=== PATIENT | female | born 1990 | race Caucasian/White ===

== ENCOUNTER → 2022-11-19 09:19 | Outpatient (CLI) | payer OTHER, SELFPAY ==
[2022-11-19 09:50] LABS: Basophils % 0.2 % (0.1-2.0); Eosinophils # 0.1 K/mm3 (0.0-0.4); Eosinophils % 1.4 % (0.1-12.0); Hematocrit 41.1 % (37.0-47.0); Hemoglobin 13.3 g/dL (12.2-16.2); Lymphocytes # 1.4 K/mm3 (0.7-4.5); Lymphocytes % 17.9 % (10-50); Mean Corpuscular HGB Conc 32.3 g/dL (31.8-35.4); Mean Corpuscular Hemoglobin 27.4 pg (27.0-31.2); Mean Platelet Volume 8.1 fl (7.4-10.4); Monocytes # 0.3 K/mm3 (0.1-1.0); Monocytes % 3.4 % (1.7-9.3); Neutrophils # 6.2 K/mm3 (1.8-7.8); Neutrophils % 77.1 % (37.0-80.0); Platelet Count 270 K/mm3 (142-424); Red Blood Count 4.84 M/mm3 (4.20-5.40); Red Cell Distribution Width 14.4 % (11.5-17.5); White Blood Count 8.1 K/mm3 (4.8-10.8)
[2022-11-20 15:33] LABS: HIV Screen 4th Generation wRfx Non Reactive (Non Reactive); Rapid Plasma Reagin Ab Titer Non Reactive (NonRea<1:1); Rubella Antibodies, IgG 1.98 index (Immune >0.99)
[2022-11-20 16:32] LABS: Barbiturates Screen,Urine Negative ng/ml (<200); Benzodiazepines Screen,Urine Negative ng/ml (<200); Cocaine Screen,Urine Negative ng/ml (<300)
[2022-11-20 16:41] LABS: Amphetamine/Metha Screen,Urine Negative ng/ml (<1000); Phencyclidine Screen,Urine Negative ng/ml (<25)
[2022-11-20 17:02] LABS: Cannabinoid Screen,Urine Positive ng/ml (<50)
[2022-11-20 17:03] LABS: Methadone Screen,Urine Negative ng/ml (<300)
[2022-11-20 17:04] LABS: Opiate Screen,Urine Negative ng/ml (<300)
[2022-12-06 08:30] LABS: Hepatitis B Surface Antigen Negative; Hepatitis C Antibody Non Reactive
== END ==
PROVIDERS: PCP Nurse Practitioner Family; Visit Provider Nurse Practitioner Obstetrics & Gynecology
DX: Z34.91 Encounter for supervision of normal pregnancy, unspecified, first trimester (principal); Z3A.09 9 weeks gestation of pregnancy
CPT/HCPCS: 36415; 80305; 85025; 86593; 86703; 86762; 86850; 87086; 87340; 87380; G0432

== ENCOUNTER → 2022-11-28 13:53 | Outpatient (CLI) | payer OTHER, SELFPAY ==
--- NOTE | 2022-11-28 13:54 | US_ITS ---
PROCEDURE: US OB <= 14 WEEKS FETUS CLINICAL INDICATION: for dates COMPARISON: No exams were available for comparison FINDINGS: Transvaginal sonographic images of the pelvis were obtained. From her last menstrual period she is 10weeks 5days. An intrauterine gestational sac is present with a pole with a crown-rump length of 3.48cm correlating to gestational age of 10weeks 3days. heart tones are present with an FHR of 160bpm. Yolk sac is noted. The yolk sac measures 5.8mm. The right ovary is seen and appears normal. It measures 6.7 cm x 4.9 cm x 4.8 cm. Within the right ovary there is a follicle measuring 4.3 cm x 4.8 cm x 4.8 cm. The left ovary is seen and appears normal. It measures 2.7 cm x 1.9 cm x 1.6 cm. There is no fluid in the cul-de-sac. IMPRESSION: 1. Viable fetus within the uterine cavity. 2. The size is concurrent with her last menstrual period. Due date will remain at June 21, 2023 3. There is a 4.8 cm follicle on the right ovary. Dictated by: Johan Holm MD 11/28/2022 15:29 Johan Holm MD in [facility] 11/28/2022 15:29
== END ==
PROVIDERS: PCP Nurse Practitioner Family; Visit Provider Nurse Practitioner Obstetrics & Gynecology
DX: Z34.91 Encounter for supervision of normal pregnancy, unspecified, first trimester (principal); Z3A.09 9 weeks gestation of pregnancy
CPT/HCPCS: 76801

== ENCOUNTER 2022-12-29 13:14 | Observation (INO) | payer OTHER, SELFPAY ==
[2022-12-29] VITALS (8 sets, daily range): BP systolic 104–127; BP diastolic 62–78; PULSE 73–112; RESP 16–20; TEMP 36.6–36.7; O2SAT 94–98; BMI 28.3; BMI 28.6
--- NOTE | 2022-12-29 13:27 | PC.NURSE ---
Pt ambulatory to bathroom and able to obtain urine sample
--- NOTE | 2022-12-29 13:31 | PC.NURSE ---
Dr. Waters at BS for pt eval
--- NOTE | 2022-12-29 13:43 | PC.NURSE ---
accompanied dr. izquierdo in room during u/s exam
--- NOTE | 2022-12-29 13:48 | HMH.EDGENADL ---
Discharge Plan Disposition Patient Disposition: Admitted Clinical Impressions Clinical Impression: Abdominal pain, RUQ, Asymptomatic bacteriuria Discharge ED Provider: Iván Waters General Adult HPI General Chief complaint: Abdominal Pain Stated complaint: V/D, abd pain Time Seen by Provider: 12/29/22 13:20 Mode of Arrival: Ambulatory Source of Information: Patient Limitations: No Limitations Description of Symptoms (Recalled from ER Triage Doc. by RN): pt cc is generalized abd pain, n/v/d since 0500 this morning. pt is 14-15 weeks and sees . pt denies any fever and is worried she ate something bad. pt states she also still has her gallbladder History of Present Illness HPI narrative: Patient is a 32-year-old female currently 14 to 15 weeks , patient of Dr. Drake who presents emergency department for evaluation of vomiting. Onset was acute, occurring earlier this morning, nonbloody, associated nonbloody diarrhea. She has vague periumbilical abdominal pain that intermittently radiates to the right upper quadrant, but is largely epigastric in nature. No sick contacts. No other acute complaints at this time. Denies vaginal bleeding. Related Data Previous Rx's Medication Instructions Recorded prenat.vits,nicole,rqs-[id number] 1 tab PO DAILY #30 tabs 05/04/21 promethazine 12.5 mg tablet 12.5 mg PO Q6H PRN nausea and 11/19/22 vomiting #30 tabs Allergies Allergy/AdvReac Type Severity Reaction Status Date / Time No Known Allergies Allergy Verified 12/17/22 08:26 [facility] Disclaimer: The information contained in this section may have been updated after the patient was seen, as this information can be updated by other users. Medical History Syphilis Surgical History (Updated 11/19/22 @ 08:38 by Nichole Alaniz CMA) H/O dilation and curettage Family History Other Alcoholism Asthma Coronary artery disease Diabetes Heart attack Hypertension Social History Smoking Status: Never smoker alcohol intake: current substance use type: denies use current occupational status: employed Travel in the last 8 weeks: None ROS Obtained: Yes Systems reviewed as appropriate & no additional complaints except as documented Physical Exam General General appearance: alert and in no apparent distress Head Head exam: atraumatic and normocephalic Eye Eye exam: Present PERRL and EOMI ENT ENT exam: Present mucous membranes moist Neck Neck exam: Present normal inspection Chest Chest inspection: Present normal inspection and symmetric chest wall rise Respiratory Respiratory exam: Present normal lung sounds bilaterally; Absent respiratory distress Cardiovascular Cardiovascular exam: Present regular rate and normal rhythm Abdominal Exam Abdominal exam: Present soft and tenderness (Mild epigastric and right upper quadrant pain tenderness) Extremities Exam Extremities exam: Present normal inspection Neurological Exam Neurological exam: Present alert and oriented X3 Psychiatric Psychiatric exam: Present normal affect Skin Skin exam: Present warm and dry Medical Decision Making Ez Inquiry Pt receiving controlled substance: No Vital Signs: 12/29/22 13:15 12/29/22 13:30 12/29/22 14:00 Temperature 97.9 F Temperature Source Oral Pulse Rate 87 93 H Pulse Rate [Left Radial] 112 H Respiratory Rate 20 Blood Pressure 115/73 109/74 L Blood Pressure [Left Arm] 121/78 Blood Pressure Mean Blood Pressure Mean [Left Arm] 92 02 Sat by Pulse Oximetry 98 95 95 Oxygen Delivery Method Room Air Room Air Room Air 12/29/22 14:30 12/29/22 15:00 12/29/22 15:50 Temperature 98.1 F Temperature Source Pulse Rate 89 73 74 Pulse Rate [Left Radial] Respiratory Rate 16 18 Blood Pressure 107/63 L 104/66
[2022-12-29 14:00] LABS: Basophils % 0.1 % (0.1-2.0); Eosinophils # 0.2 K/mm3 (0.0-0.4); Eosinophils % 1.6 % (0.1-12.0); Hematocrit 44.5 % (37.0-47.0); Hemoglobin 14.5 g/dL (12.2-16.2); Lymphocytes # 1.2 K/mm3 (0.7-4.5); Lymphocytes % 8.7 % (10-50); Mean Corpuscular HGB Conc 32.6 g/dL (31.8-35.4); Mean Corpuscular Hemoglobin 28.5 pg (27.0-31.2); Mean Corpuscular Volume 87.4 fl (81-99); Mean Platelet Volume 8.2 fl (7.4-10.4); Monocytes # 0.3 K/mm3 (0.1-1.0); Monocytes % 2.3 % (1.7-9.3); Neutrophils # 11.7 K/mm3 (1.8-7.8); Neutrophils % 87.4 % (37.0-80.0); Platelet Count 245 K/mm3 (142-424); Red Blood Count 5.09 M/mm3 (4.20-5.40); Red Cell Distribution Width 14.4 % (11.5-17.5); White Blood Count 13.4 K/mm3 (4.8-10.8)
[2022-12-29 14:01] LABS: Chloride 107 mmol/L (98-107); MANUAL DIFFERENTIAL MANUAL DIFFERENTIAL (MANUAL DIFF); Potassium 3.7 mmoL/L (3.5-5.1); Sodium 137 mmol/L (136-145)
[2022-12-29 14:04] LABS: Alanine Aminotransferase 25 U/L (12-78); Alkaline Phosphatase 75 U/L (38-126); Anion Gap 10.7 mEq/L (5-15); Aspartate Amino Transferase 25 U/L (14-36); Bilirubin,Total 0.3 mg/dl (0.2-1.3); Blood Urea Nitrogen 7 mg/dl (7-17); Carbon Dioxide 23 mmol/L (22.0-30.0); Creatinine Clearance Estimated 182 mL/min (50-200); Estimated Glomerular Filt Rate 141 ml/min (>60); GFR (African American) 171 ML/MIN (>60); Glucose 98 mg/dl (74-100); Lipase 49 U/L (23-300)
[2022-12-29 14:05] LABS: Albumin Level 3.5 g/dl (3.5-5.0); Globulin 3.5 g/dL (1.3-3.2)
[2022-12-29 14:15] LABS: Microscopic, Urine URINE MICROSCOPIC (MICROSCOPIC)
[2022-12-29 14:17] LABS: Appearance,Urine CLOUDY (Clear); Blood, Urine TRACE-I (Negative); Color,Urine YELLOW (Yellow); Glucose,Urine (UA) Negative (Negative); Ketones,Urine TRACE (Negative); Leukocyte Esterase,Urine 1+ (Negative); Nitrate,Urine Negative (Negative); PH,Urine 5.5 (5.0-8.5); Protein,Urine Negative (Negative); Specific Gravity, Urine >= 1.030 (1.005-1.030); Urobilinogen,Urine 0.2 EU/dl (0.2)
[2022-12-29 14:18] LABS: Bilirubin,Urine 1+ (Negative)
--- NOTE | 2022-12-29 14:24 | PC.NURSE ---
Dr. Waters at BS
--- NOTE | 2022-12-29 14:26 | PC.NURSE ---
waiting bonding machine tender back from Dr. Mulligan
[2022-12-29 14:29] LABS: Bacteria,Urine 3+ /lpf; RBC,Urine Occasional #/hpf (0-3)
[2022-12-29 14:46] LABS: Eosinophils % 1 % (0-3); Lymphocytes % 7 % (10-50); Monocytes % 1 % (2-9); Neutrophils % 91 % (42-76); Platelet Estimate Normal; RBC Morphology Normal; Total Cells Counted 100
--- NOTE | 2022-12-29 14:54 | PC.NURSE ---
ER MD Waters speaking with Dr. Mulligan
--- NOTE | 2022-12-29 15:05 | PC.NURSE ---
press operator printing paging surgeon special education secretary
--- NOTE | 2022-12-29 15:06 | PC.NURSE ---
ER MD Waters speaking with surgeon motion picture film examiner
--- NOTE | 2022-12-29 15:11 | PC.NURSE ---
Dr. Waters at BS to speak with pt
--- NOTE | 2022-12-29 15:14 | PC.NURSE ---
SPOKE WITH JUAN STROUD [facility] REGARDING UNASYN IN SHE ADVISES IT IS SAFE TO USE
--- NOTE | 2022-12-29 15:14 | PC.NURSE ---
notified laborer beam house of admission
--- NOTE | 2022-12-29 15:14 | EXP.HP ---
History of Present Illness *Admission Date: 12/29/22 *Reason for visit:: Abdominal pain, 14 weeks *History of present illness: Ms. Mendez is a pleasant 32-year-old female who is 14 weeks . Presented to the ER with onset of generalized abdominal pain, nausea, vomiting, diarrhea since 5 this morning. She denies fever, blood in her vomit or stool, chest pain or shortness of breath. Does complain of having some GERD occasionally while . Onset occurred acutely this morning. By the time of presentation to the ER, patient has pain in her epigastric and right upper quadrant regions. No known sick contacts with similar symptoms. Denies any vaginal bleeding or dysuria. Eval in the ER positive for epigastric and right upper quadrant pain. Leukocytosis of 13.4, UA abnormal with leuk esterase and bacteria. Liver enzymes normal. Medicine consulted for admission and further management of GI symptoms and right upper quadrant pain in . Recommended patient be evaluated by surgery or at least surgical consult before admission. ER discussed case with surgery, recommend admission for serial exams and ultrasound in the morning. On arrival to the floor, patient is no longer having any nausea or vomiting. Stable on room air. [facility] Disclaimer: The information contained in this section may have been updated after the patient was seen, as this information can be updated by other users. Medical History Syphilis Surgical History H/O dilation and curettage Family History Diabetes Coronary artery disease Alcoholism Heart attack Hypertension Asthma Social History Smoking Status: Never smoker alcohol intake: current substance use type: denies use current occupational status: employed Travel in the last 8 weeks: None Review of Systems Review of Systems Review of systems (narrative): 14 point review of systems performed, pertinent positives and negatives as per HPI Meds Home Medications and Allergies Home Medications Medication Instructions Recorded Confirmed Type promethazine 12.5 mg tablet 12.5 mg PO Q6H PRN nausea and 11/19/22 12/29/22 Rx vomiting #30 tabs prenat.vits,nicole,[id number] 1 tab PO DAILY daily vitamin 12/29/22 12/29/22 History New Prescriptions to Start Prescriptions: Allergies Allergy/AdvReac Type Severity Reaction Status Date / Time No Known Allergies Allergy Verified 12/17/22 08:26 Exam Data for Last 24 hours Vital signs and Labs for Last 24 Hours: Temp Pulse Resp BP Pulse Ox O2 Del Method 97.9 F 89 20 107/63 L 94 L Room Air 12/29/22 13:15 12/29/22 14:30 12/29/22 13:15 12/29/22 14:30 12/29/22 14:30 12/29/22 14:30 Laboratory Results - last 24 hr 12/29/22 13:23: Urine Color Yellow, Urine Appearance Cloudy, Urine pH 5.5, Ur Specific [place] >= 1.030, Urine Protein Negative, Urine Glucose (UA) Negative, Urine Ketones Trace, Urine Blood Trace-i, Urine Nitrate Negative, Urine Bilirubin 1+ A, Urine Urobilinogen 0.2, Ur Leukocyte Esterase 1+ A, Urine RBC Occasional, Urine WBC 3-5, Ur Squamous Epith Cells 10-20, Urine Bacteria 3+ 12/29/22 13:50: WBC 13.4 H, RBC 5.09, Hgb 14.5, Hct 44.5, MCV 87.4, MCH 28.5, MCHC 32.6, RDW 14.4, Plt Count 245, MPV 8.2, Neut % (Auto) 87.4 H, Lymph % (Auto) 8.7 L, [place] % (Auto) 2.3, Eos % (Auto) 1.6, Baso % (Auto) 0.1, Neut # (Auto) 11.7 H, Lymph # (Auto) 1.2, [place] # (Auto) 0.3, Eos # (Auto) 0.2, Baso # (Auto) 0.0, Total Counted 100, Neutrophils % (Manual) 91 H, Lymphocytes % (Manual) 7 L, Monocytes % (Manual) 1 L, Eosinophils % (Manual) 1, Platelet Estimate Normal, RBC Morphology Normal, Sodium 137, Potassium 3.7, Chloride 107, Carbon Dioxide 23, Anion Gap 10.7, BUN 7, Creatinine 0.50 L, Estimated Creat Clear 182, Est
--- NOTE | 2022-12-29 15:45 | PC.NURSE ---
called report to cyn cruz on 2nd floor and answered all questions
--- NOTE | 2022-12-29 15:56 | PC.NURSE ---
PT GONE UP FOR ADMISSION
--- NOTE | 2022-12-29 18:43 | PC.NURSE ---
Pt arrived to the unit with abdominal tenderness and reported pain . Pt was given promethizine in the ER and denies any N/V since admission, Pt now seems to be resting and denies needs at this time.
[2022-12-30] VITALS: BP 102/61; PULSE 67; RESP 18; TEMP 36.8; O2SAT 91
--- NOTE | 2022-12-30 | US_ITS ---
FINAL REPORT CLINICAL HISTORY: .severe abdominal pain COMPARISON: None FINDINGS: Sonographic images of the right upper quadrant were obtained. The pancreas is partially obscured.The liver has an unremarkable appearance.The gallbladder appears normal without evidence of gallstones.There is no evidence of biliary ductal dilatation.The common duct measures 2 mm. Limited images of the right kidney are unremarkable. IMPRESSION: Unremarkable right upper quadrant ultrasound. Reviewed, Interpreted and Dictated by Kevin Damico III, MD Transcribed by Karyna Govea Authenticated and [facility]
[2022-12-30 04:00] VITALS: BP 100/66; PULSE 74; RESP 18; TEMP 36.7; O2SAT 97; BMI 28.8
--- NOTE | 2022-12-30 07:23 | HMH.PHAINT1 ---
Pharmacy Intervention Comments: Medication history complete, medications verified with fill history, - Zoë Tapia, PharmD Candidate 2023
[2022-12-30 07:37] LABS: Basophils % 0.3 % (0.1-2.0); Eosinophils # 0.1 K/mm3 (0.0-0.4); Hematocrit 38.6 % (37.0-47.0); Lymphocytes # 1.7 K/mm3 (0.7-4.5); Lymphocytes % 19.1 % (10-50); Mean Corpuscular HGB Conc 32.9 g/dL (31.8-35.4); Mean Corpuscular Hemoglobin 28.6 pg (27.0-31.2); Mean Platelet Volume 9.1 fl (7.4-10.4); Monocytes # 0.5 K/mm3 (0.1-1.0); Monocytes % 5.2 % (1.7-9.3); Neutrophils # 6.7 K/mm3 (1.8-7.8); Neutrophils % 74.3 % (37.0-80.0); Platelet Count 235 K/mm3 (142-424); Red Blood Count 4.44 M/mm3 (4.20-5.40); Red Cell Distribution Width 14.6 % (11.5-17.5)
[2022-12-30 07:40] LABS: Alanine Aminotransferase 19 U/L (12-78); Alkaline Phosphatase 56 U/L (38-126); Anion Gap 11.6 mEq/L (5-15); Aspartate Amino Transferase 21 U/L (14-36); Bilirubin,Total 0.3 mg/dl (0.2-1.3); Blood Urea Nitrogen 8 mg/dl (7-17); Calcium 7.9 mg/dl (8.4-10.2); Carbon Dioxide 22 mmol/L (22.0-30.0); Chloride 107 mmol/L (98-107); Creatinine Clearance Estimated 185 mL/min (50-200); Estimated Glomerular Filt Rate 141 ml/min (>60); GFR (African American) 171 ML/MIN (>60); Glucose 89 mg/dl (74-100); Magnesium 1.6 mg/dl (1.6-2.3); Potassium 3.6 mmoL/L (3.5-5.1); Sodium 137 mmol/L (136-145)
[2022-12-30 07:52] VITALS: BP 111/61; PULSE 66; RESP 17; TEMP 36.8; O2SAT 98
[2022-12-30 08:04] LABS: Hemoglobin 12.7 g/dL (12.2-16.2)
[2022-12-30 11:16] VITALS: BP 112/63; PULSE 85; RESP 16; TEMP 36.7; O2SAT 98
--- NOTE | 2022-12-30 12:04 | EXP.DC.SUM ---
General Admission date:: 12/29/22 Discharge date: 12/30/22 HPI HPI HPI: Ms. Mendez is a pleasant 32-year-old female who is 14 weeks . Presented to the ER with onset of generalized abdominal pain, nausea, vomiting, diarrhea since 5 this morning. She denies fever, blood in her vomit or stool, chest pain or shortness of breath. Does complain of having some GERD occasionally while . Onset occurred acutely this morning. By the time of presentation to the ER, patient has pain in her epigastric and right upper quadrant regions. No known sick contacts with similar symptoms. Denies any vaginal bleeding or dysuria. Eval in the ER positive for epigastric and right upper quadrant pain. Leukocytosis of 13.4, UA abnormal with leuk esterase and bacteria. Liver enzymes normal. Medicine consulted for admission and further management of GI symptoms and right upper quadrant pain in . Recommended patient be evaluated by surgery or at least surgical consult before admission. ER discussed case with surgery, recommend admission for serial exams and ultrasound in the morning. On arrival to the floor, patient is no longer having any nausea or vomiting. Stable on room air. Hospital Course Hospital Course Hospital Course: 32-year-old female who is 14 weeks . Presents with abdominal pain of less than 24 hours. Concern for right upper quadrant and epigastric. There are management and work-up of abdominal pain. Ultrasound negative. Stable for discharge home. Tolerating p.o. intake. Problems addressed as follows during admission: Right upper quadrant and epigastric abdominal pain -Given presentation, potential concern for cholecystitis in . Differential diagnosis includes cholecystitis, colitis, GERD, gastroenteritis. Patient monitored overnight. No further episodes of diarrhea. . Right upper quadrant ultrasound obtained that was unremarkable for gallbladder disease. Patient's pain better by morning. Suspect component of GERD. No indication for further antibiotics. Treated with Unasyn for 3 doses during admission. We will continue famotidine at discharge. Bacteriuria -Denies dysuria or flank pain. UA abnormal however with leuk esterase and bacteria. Urine culture negative at time of discharge. We will continue to monitor. No antibiotics continued at discharge given patient being asymptomatic. 14 weeks , caution with medications and will evaluate safety in prior to administration; complicates all aspects of her care Exam Data for Last 24 hours Vital signs and Labs for Last 24 Hours: Temp Pulse Resp BP Pulse Ox O2 Del Method 98.1 F 85 16 112/63 98 Room Air 12/30/22 11:16 12/30/22 11:16 12/30/22 11:16 12/30/22 11:16 12/30/22 11:16 12/30/22 11:16 Laboratory Results - last 24 hr 12/29/22 13:23: Urine Color Yellow, Urine Appearance Cloudy, Urine pH 5.5, Ur Specific [place] >= 1.030, Urine Protein Negative, Urine Glucose (UA) Negative, Urine Ketones Trace, Urine Blood Trace-i, Urine Nitrate Negative, Urine Bilirubin 1+ A, Urine Urobilinogen 0.2, Ur Leukocyte Esterase 1+ A, Urine RBC Occasional, Urine WBC 3-5, Ur Squamous Epith Cells 10-20, Urine Bacteria 3+ 12/29/22 13:50: WBC 13.4 H, RBC 5.09, Hgb 14.5, Hct 44.5, MCV 87.4, MCH 28.5, MCHC 32.6, RDW 14.4, Plt Count 245, MPV 8.2, Neut % (Auto) 87.4 H, Lymph % (Auto) 8.7 L, [place] % (Auto) 2.3, Eos % (Auto) 1.6, Baso % (Auto) 0.1, Neut # (Auto) 11.7 H, Lymph # (Auto) 1.2, [place] # (Auto) 0.3, Eos # (Auto) 0.2, Baso # (Auto) 0.0, Total Counted 100, Neutrophils % (Manual) 91 H, Lymphocytes % (Manual) 7 L, Monocytes % (Manual) 1 L, Eosinophils % (Manual) 1, Platelet Estimate Normal, RBC Morphology Normal, Sodium 137, Potassium 3.7, Chloride 107, Carbon Dioxide 23, Anion Gap 10.7, BUN 7, Creatinine 0.50 L, Estimated Creat Clear 182, Estimated GFR 141, Est GFR ( Amer) 171, Glucose 98, Calcium 9.0, Total Bilirubin 0.3, AST 25, ALT 25,
--- NOTE | 2023-01-02 12:48 | CARE MANAGER ---
Attempted to contact patient related to hospital discharge. No answer. JENISE Cain
== END 2022-12-30 12:50 | disposition home or self-care (01) ==
LOC: ER 15:15 → 2ND 15:32
PROVIDERS: Admitting Provider Internal Medicine Adolescent Medicine; Emergency Provider Emergency Medicine; PCP Nurse Practitioner Family; Visit Provider Internal Medicine Adolescent Medicine
DX: O26.892 Other specified pregnancy related conditions, second trimester (principal); R10.11 Right upper quadrant pain; R82.71 Bacteriuria; Z3A.15 15 weeks gestation of pregnancy
CPT/HCPCS: 36415; 76705; 80053; 81001; 83690; 83735; 85007; 85025; 87086; 99285; G0378

== ENCOUNTER → 2023-02-04 13:07 | Outpatient (CLI) | payer OTHER, SELFPAY ==
--- NOTE | 2023-02-04 13:11 | US_ITS ---
PROCEDURE: US OB /MATERNAL DETAIL CLINICAL INDICATION: 20 week anatomy scan COMPARISON: Early ultrasound 11/28/2022 FINDINGS: Transabdominal sonographic images of the pelvis were obtained. From her established due date she is 20 weeks 1 day . Single viable intrauterine gestation. Breech position. Placenta: Anteriorplacenta grade 1. There is an average amount of fluid. The cervix appears satisfactory. Closed and measuring 3.0 cm in length. Complete survey performed and was unremarkable on the submitted images as in PACS. No discrete anomalies identified on survey imaging by technologist. Active fetus. Three-vessel cord with satisfactory umbilical cord insertion. 4- chamber heart noted. Aortic arch, LVOT, RVOT, three-vessel view appear normal. Survey of brain & ventricles Unremarkable. Choroid plexus, thalamus, cerebellum, cisterna magna appear normal. Face and neck survey unremarkable. Profile, nasion, nose and lips appear normal. Diaphragm and chest views unremarkable. Abdomen: Both kidneys noted and unremarkable. Stomach and bladder noted and satisfactory. Spine: Survey of the spine satisfactory with no anomalies identified nor imaged. Cervical, thoracic and lower spine appear normal. Both arms and legs noted. Amniotic Fluid: Adequate. Measurements: Average ultrasound age 19weeks 5days. Estimated due date by ultrasound age 0306/26/2023. Estimated weight 306g BPD = 19weeks 3days HC = 19weeks 6days AC = 19weeks 4days FL = 19weeks 6days Growth Percentile= 22 Heart Rate = 147bpm Cerebellum = 19weeks 3days Humerus = 20weeks 2days HC/AC is 1.21 FL/BPD is 0.71 FL/AC is 0.22 IMPRESSION: 1. Viable fetus in the breech presentation with an anterior placenta grade 1. 2. The fluid is within normal limits. 3. biometry is consistent with dates. 4. Anatomical scan appears normal. Dictated by: Johan Holm MD 02/04/2023 15:34 Johan Holm MD in [facility] 02/04/2023 15:34
== END ==
PROVIDERS: PCP Nurse Practitioner Family; Visit Provider Nurse Practitioner Obstetrics & Gynecology
DX: Z34.92 Encounter for supervision of normal pregnancy, unspecified, second trimester (principal); Z3A.20 20 weeks gestation of pregnancy
CPT/HCPCS: 76811

== ENCOUNTER → 2023-02-12 08:33 | Outpatient (CLI) | payer OTHER, SELFPAY ==
[2023-02-12 10:25] LABS: HCG,Quantitative 15153 mIU/ml (0-5.42)
[2023-02-12 10:51] LABS: Glucose 1 Hour 130 mg/dL (74-100)
[2023-02-12 10:58] LABS: Glucose,Fasting 87 mg/dl (74-100)
[2023-02-13 11:56] LABS: Progesterone 24.2 ng/mL (.)
== END ==
PROVIDERS: PCP Nurse Practitioner Family; Visit Provider Nurse Practitioner Obstetrics & Gynecology
DX: Z34.92 Encounter for supervision of normal pregnancy, unspecified, second trimester (principal); Z3A.21 21 weeks gestation of pregnancy
CPT/HCPCS: 36415; 82951; 84144; 84702

== ENCOUNTER 2023-04-28 14:15 | Outpatient (CLI) | payer OTHER, SELFPAY ==
[2023-04-28 14:55] VITALS: BMI 31.6
[2023-04-28 15:10] LABS: Fetal Membrane Rupture (Rapid) Negative (Negative)
[2023-04-28 15:28] LABS: Microscopic, Urine URINE MICROSCOPIC (MICROSCOPIC)
[2023-04-28 15:33] LABS: Appearance,Urine SL CLOUDY (Clear); Blood, Urine Negative (Negative); Color,Urine YELLOW (Yellow); Glucose,Urine (UA) Negative (Negative); Ketones,Urine TRACE (Negative); Leukocyte Esterase,Urine 2+ (Negative); Nitrate,Urine Negative (Negative); Protein,Urine 1+ (Negative); Specific Gravity, Urine 1.025 (1.005-1.030)
[2023-04-28 15:35] VITALS: BP 120/72; PULSE 89; RESP 20; TEMP 37.1; O2SAT 100; BMI 31.6
[2023-04-28 15:38] LABS: Bilirubin,Urine 1+ (Negative)
[2023-04-28 15:47] LABS: Bacteria,Urine 2+ /lpf
[2023-04-28 16:17] LABS: Amphetamine/Metha Screen,Urine Negative ng/ml (<1000); Barbiturates Screen,Urine Negative ng/ml (<200); Benzodiazepines Screen,Urine Negative ng/ml (<200); Cannabinoid Screen,Urine Positive ng/ml (<50); Cocaine Screen,Urine Negative ng/ml (<300); Methadone Screen,Urine Negative ng/ml (<300); Opiate Screen,Urine Negative ng/ml (<300); Phencyclidine Screen,Urine Negative ng/ml (<25)
== END 2023-04-28 16:00 | disposition home or self-care (01) ==
LOC: OBOUT 14:17 → OB 14:18
PROVIDERS: PCP Nurse Practitioner Family; Visit Provider Nurse Practitioner Obstetrics & Gynecology
DX: O26.893 Other specified pregnancy related conditions, third trimester (principal); Z3A.32 32 weeks gestation of pregnancy
CPT/HCPCS: 59025; 80307; 81001; 84112; 87086; G0463

== ENCOUNTER 2023-05-26 16:45 | Outpatient (CLI) | payer OTHER, SELFPAY | END 2023-05-26 23:59 | LOC: LAB.DROPOF 16:45 | PROVIDERS: PCP Nurse Practitioner Obstetrics & Gynecology; Visit Provider Nurse Practitioner Obstetrics & Gynecology | DX: Z3A.37 37 weeks gestation of pregnancy; B95.1 Streptococcus, group B, as the cause of diseases classified elsewhere; Z34.93 Encounter for supervision of normal pregnancy, unspecified, third trimester | CPT/HCPCS: 86403 ==

== ENCOUNTER 2023-06-06 14:02 | Outpatient (CLI) | payer OTHER, SELFPAY ==
--- NOTE | 2023-06-06 14:05 | US_ITS ---
PROCEDURE: US OB BIOPHYSICAL PROFILE CLINICAL INDICATION: lga COMPARISON: US US OB /MATERNAL DETAIL from 02/04/2023 FINDINGS: Transabdominal sonographic images of the uterus were obtained. From her established due date she is 37weeks 4days. The following parameters are obtained: Viable Fetus in the cephalic presentation with and anterior placenta grade 2. Average ultrasound age is 38weeks 3days Estimated weight 3,470g, 7 lb 10 oz Cervix measures 3.0 cm Measurements: heart Rate = 144bpm BPD = 38weeks 0 days, 79 percentile HC = 39weeks 3days, 71 percentile AC = 38weeks 5days, 88 percentile FL = 37weeks 4days, 48 percentile HC/AC is 0.98 FL/BPD is 0.78 FL/AC is 0.21 79 percentile Amniotic fluid index: 14.55cm, MVP 7.22 cm. Qualitative AFV:2 Breathing movements: 2 Gross Body Movements: 2 Tone: 2 Biophysical profile score: 8 No obvious anomalies evident.Kidneys, profile, nasion, bladder, four-chamber heart, three-vessel cord appear normal. IMPRESSION: 1. Viable fetus in the cephalic presentation with an anterior placenta grade 2. 2. The fluid is within normal limits with an amniotic fluid index of 14.55 cm, MVP 7.22 cm. 3. Biophysical profile 8/8 with good breathing movement and movement seen. 4. Good interval growth with the fetus currently 79th percentile. 5. Limited anatomical scan appears normal. Dictated by: Johan Holm MD 06/09/2023 12:04 Johan Holm MD in [facility] 06/09/2023 12:04
== END 2023-06-06 23:59 ==
LOC: RAD 14:02
PROVIDERS: PCP Nurse Practitioner Family; Visit Provider Nurse Practitioner Obstetrics & Gynecology
DX: O36.63X0 Maternal care for excessive fetal growth, third trimester, not applicable or unspecified (principal); Z3A.37 37 weeks gestation of pregnancy
CPT/HCPCS: 76816; 76819

== ENCOUNTER 2023-06-16 06:49 | Inpatient (IN) | payer OTHER, SELFPAY ==
[2023-06-16 06:53] VITALS: BMI 32.5
--- NOTE | 2023-06-16 07:27 | P.CONPHA_ITS ---
Pharmacy Intervention Comments: MEDICATION RECONCILIATION COMPLETED ON PATIENT USING EXTERNAL FILL HISTORY FROM PHARMACY AND LIST FROM SPECIAL EDUCATION ADMINISTRATOR OFFICE. -ZELDA WASHINGTOND
--- NOTE | 2023-06-16 07:27 | HMH.PHAINT1 ---
Pharmacy Intervention Comments: MEDICATION RECONCILIATION COMPLETED ON PATIENT USING EXTERNAL FILL HISTORY FROM PHARMACY AND LIST FROM FUR REPAIRER OFFICE. -ZELDA WASHINGTOND
[2023-06-16] MEDS: OXYTOCIN/RINGERS LACTATE 30 UNITS/500 ML BAG IV (07:37)
[2023-06-16] MEDS: DEXTROSE 5%-LACTATED RINGERS 1,000 ML 125 ML IV (07:37)
[2023-06-16 07:38] LABS: Microscopic, Urine URINE MICROSCOPIC (MICROSCOPIC)
[2023-06-16] MEDS: LACTATED RINGERS 1000ML 1,000 ML 500 ML IV (07:38)
[2023-06-16] MEDS: AMPICILLIN SODIUM 2 GM in 0.9 % SODIUM CHLORIDE 100 ML IV (07:41)
[2023-06-16 07:47] LABS: Basophils % 0.4 % (0.1-2.0); Eosinophils # 0.1 K/mm3 (0.0-0.4); Eosinophils % 0.9 % (0.1-12.0); Hematocrit 37.3 % (37.0-47.0); Hemoglobin 12.2 g/dL (12.2-16.2); Lymphocytes # 2.2 K/mm3 (0.7-4.5); Lymphocytes % 24.8 % (10-50); Mean Corpuscular HGB Conc 32.8 g/dL (31.8-35.4); Mean Corpuscular Hemoglobin 27.4 pg (27.0-31.2); Mean Corpuscular Volume 83.7 fl (81-99); Mean Platelet Volume 9.1 fl (7.4-10.4); Monocytes # 0.5 K/mm3 (0.1-1.0); Monocytes % 5.4 % (1.7-9.3); Neutrophils % 68.4 % (37.0-80.0); Platelet Count 244 K/mm3 (142-424); Red Blood Count 4.46 M/mm3 (4.20-5.40); Red Cell Distribution Width 16.4 % (11.5-17.5); White Blood Count 8.8 K/mm3 (4.8-10.8)
[2023-06-16 07:48] LABS: Appearance,Urine SL CLOUDY (Clear); Bilirubin,Urine Negative (Negative); Blood, Urine TRACE-I (Negative); Color,Urine YELLOW (Yellow); Glucose,Urine (UA) Negative (Negative); Ketones,Urine Negative (Negative); Leukocyte Esterase,Urine 2+ (Negative); Nitrate,Urine Negative (Negative); Protein,Urine Negative (Negative); Specific Gravity, Urine 1.025 (1.005-1.030); Urobilinogen,Urine 0.2 EU/dl (0.2)
[2023-06-16 08:00] LABS: Amphetamine/Metha Screen,Urine Negative ng/ml (<1000); Benzodiazepines Screen,Urine Negative ng/ml (<200)
[2023-06-16 08:01] LABS: Barbiturates Screen,Urine Negative ng/ml (<200)
[2023-06-16 08:02] LABS: Cannabinoid Screen,Urine Positive ng/ml (<50); Cocaine Screen,Urine Negative ng/ml (<300)
[2023-06-16 08:03] LABS: Methadone Screen,Urine Negative ng/ml (<300)
[2023-06-16 08:04] LABS: Opiate Screen,Urine Negative ng/ml (<300); Phencyclidine Screen,Urine Negative ng/ml (<25)
[2023-06-16 08:08] VITALS: BP 131/77; PULSE 68; RESP 16; TEMP 36.9; O2SAT 97; BMI 32.5
[2023-06-16 08:21] LABS: Bacteria,Urine 1+ /lpf
--- NOTE | 2023-06-16 08:41 | EXP.LABOR.NO ---
Labor Note Subjective: Date: 06/16/23 Time: 08:15 regular contraction Objective: NST:: Reactive Contractions:: every 4-5 minutes Cervical Dilation:: 3-4 Effacement:: 75% Station: -2 Membranes: artificially ruptured Comment:: I ruptured membranes and there was clear fluid Fetus: Monitoring?: Yes monitoring type:: External Assessment: Labor progressing?: Yes Cephalopelvic disproportion?: No Plan: Anesthesia for epidural?: No Continue to labor down?: Yes Plan for ?: No Continue to monitor?: Yes Start pushing?: No Comment:: She is heidi fairly regularly. The cervix is soft and 3 to 4 cm. I ruptured membranes and there is clear fluid.
--- NOTE | 2023-06-16 08:43 | P.HP_ITS ---
History of Present Illness *Admission Date: 06/16/23 *Reason for visit:: Term , previous vaginal deliveries *History of present illness: She is a 32-year-old 5 para 3 who is 39 weeks gestational age. She has had a previous 10 pound 13 ounce baby and as result of that she requested delivery at term. [facility] Disclaimer: The information contained in this section may have been updated after the patient was seen, as this information can be updated by other users. Medical History DUB (dysfunctional uterine bleeding) Syphilis Surgical History H/O dilation and curettage Family History Diabetes Coronary artery disease Alcoholism Heart attack Hypertension Asthma Social History Smoking Status: Never smoker alcohol intake: current substance use type: denies use current occupational status: employed Travel in the last 8 weeks: None Review of Systems Review of Systems Review of systems:: pertinent systems reviewed and negative unless documented below Meds Home Medications and Allergies Home Medications Medication Instructions Recorded Confirmed Type ferrous sulfate 325 mg (65 mg 325 mg PO DAILY Supplement 06/16/23 06/16/23 History iron) tablet,delayed release vit no.95-ferrous 1 tab PO DAILY Supplement 06/16/23 06/16/23 History fumarate 28 mg-folic acid 800 mcg tablet () New Prescriptions to Start Prescriptions: Allergies Allergy/AdvReac Type Severity Reaction Status Date / Time No Known Allergies Allergy Verified 06/09/23 09:49 Exam Data for Last 24 hours Vital signs and Labs for Last 24 Hours: Temp Pulse Resp BP Pulse Ox O2 Del Method 98.5 F 68 16 131/77 97 Room Air 06/16/23 08:08 06/16/23 08:08 06/16/23 08:08 06/16/23 08:08 06/16/23 08:08 06/16/23 08:08 Laboratory Results - last 24 hr 06/16/23 07:06: Urine Color Yellow, Urine Appearance Sl cloudy, Urine pH 6.0, Ur Specific [place] 1.025, Urine Protein Negative, Urine Glucose (UA) Negative, Urine Ketones Negative, Urine Blood Trace-i, Urine Nitrate Negative, Urine Bilirubin Negative, Urine Urobilinogen 0.2, Ur Leukocyte Esterase 2+ A, Urine RBC None, Urine WBC 10-20, Ur Squamous Epith Cells 3-5, Urine Bacteria 1+, Urine Opiates Screen Negative, Urine Methadone Screen Negative, Ur Barbituates Screen Negative, Ur Phencyclidine Scrn Negative, Ur Amphetamines Screen Negative, U Benzodiazepines Scrn Negative, Urine Cocaine Screen Negative, U Marijuana (THC) Screen Positive H 06/16/23 07:16: WBC 8.8, RBC 4.46, Hgb 12.2, Hct 37.3, MCV 83.7, MCH 27.4, MCHC 32.8, RDW 16.4, Plt Count 244, MPV 9.1, Neut % (Auto) 68.4, Lymph % (Auto) 24.8, [place] % (Auto) 5.4, Eos % (Auto) 0.9, Baso % (Auto) 0.4, Neut # (Auto) 6.0, Lymph # (Auto) 2.2, [place] # (Auto) 0.5, Eos # (Auto) 0.1, Baso # (Auto) 0.0 I & O for Last 24 hours: Intake & Output 06/13/23 06/14/23 06/15/23 06/16/23 11:59 11:59 11:59 11:59 Weight 184 lb Constitutional Constitutional: no acute distress *Routine HEENT Exam Head: Present normocephalic Eye: Present EOMI and PERRL ENT: Present mucous membranes moist *Routine Neck Exam Neck: Present supple; Absent lymphadenopathy *Routine Respiratory Exam Respiratory: Present CTA bilaterally *Routine Cardiovascular Exam Cardiovascular: Present RRR *Routine Abdominal Exam Abdominal: Present soft and normoactive bowel sounds; Absent tenderness *Routine Rectal Exam Rectal:: deferred *Routine Genitalia Exam Genitalia:: deferred *Routine Extremities Exam Extremities: Absent cyanosis, clubbing or edema *Routine Skin Exam Skin: Present warm; Absent rash *Routine Neurological Exam Neurological: Present alert and oriented X3 Assessment and Plan *Assessment and plan (1) : Status: Acute Qualifiers: Weeks of gestation: 38 weeks Qualified Code(s): Z3A.38 - 38 weeks gestation of Category: Medical Code(s): Z34.90 - Encounter for supervision of normal , unspecified, unspecified trimester (2) Normal delivery at term: Status: Acute Category: Medical Code(s): O80 - Encounter for full-term uncomplicated delivery (3) Mother positive for group B Streptococcus colonization: Status: Acute Category: Medical Code(s): P00.82 - [place] affected by (positive) maternal group B streptococcus (GBS) colonization Plan She has had previous vaginal deliveries and expect a vaginal delivery. She has group B strep and it is clindamycin sensitive. We have given her 900 mg of clindamycin.
[2023-06-16] MEDS: CLINDAMYCIN PHOSPHATE/D5W 900 MG/50 ML PIGGYBACK 100 MG IV (09:01)
--- NOTE | 2023-06-16 09:36 | EXP.ANES.CKL ---
[facility] Disclaimer: The information contained in this section may have been updated after the patient was seen, as this information can be updated by other users. Medical History DUB (dysfunctional uterine bleeding) Syphilis Surgical History H/O dilation and curettage Family History Diabetes Coronary artery disease Alcoholism Heart attack Hypertension Asthma Social History Smoking Status: Never smoker alcohol intake: current substance use type: denies use current occupational status: employed Travel in the last 8 weeks: None [facility] Anesthesia Checklist Patient Identification Patient Identification: Arm Band Structural Data Admitted From: Home Planned Operative Procedure/s: Labor Epidural Consent for Planned Operative Procedure(s) Verified: Yes Verified Documents: Surgical Consent and History and Physical NPO Status Verified Time NPO: 00:00 Additional verifications Anesthesia Reactions: No Airway Assessment Mallampati Score:: Class II C-Spine Mobility Assessed: Yes TMJ Mobility Assessed: Yes Dentition: Good Dentition Neurological Assessment Level of Consciousness: Awake and Alert Anesthesia Plan Anesthesia Risk discussed: Yes Anesthesia Plan: Verified ASA Class: II Anesthesia Type: Epidural
[2023-06-16] MEDS: ePHEDrine SULF 50MG/ML VIAL 10 MG IV (10:15)
[2023-06-16] MEDS: OXYTOCIN/RINGERS LACTATE 30 UNITS/500 ML BAG 999 UNITS IV (10:25)
--- NOTE | 2023-06-16 10:33 | EXP.DN ---
Delivery Note Delivery Date:: 06/16/23 Delivery Time:: 10:23 Anesthesia Type: Epidural Was labor medically induced?: Yes Induction method: per pitocin protocol Gestational age (weeks): 39 delivered prior to 39 weeks?: No Gender: Female at 1 minute: 9 at 5 minutes: 9 Delivery Procedure:: She is a 32-year-old 5 para 3 who is 39 weeks gestational age. She has had a previous 10+ pound baby so we elected to induce her labor at term. She was started on IV oxytocin had her membranes ruptured. She progressed under labor epidural to full dilation and delivered spontaneously a liveborn female child at 10:23 AM on the morning of June 16, 2023. On delivery the head the anterior shoulder then easily delivered followed by the rest the 's body atraumatically. The baby was vigorous and cried spontaneously. The oropharynx and nasopharynx were bulb suction. The baby was stimulated. We allowed the cord to continue to pulsate for approximately 1 minute. The cord was then doubly clamped and cut and the infant was handed off to nurses who assigned Apgars of 9 at 1 minute and 9 at 5 minutes. We then obtained cord blood. She received IV oxytocin using gentle traction on the cord and countertraction the fundus I was able to easily deliver the placenta intact. He had a normal three-vessel cord. There were no perineal or vaginal lacerations. Estimated blood loss was approximate 100 cc. She was group B streptococcus positive and did receive IV ampicillin as well as IV clindamycin in labor. She plans to bottlefeed. Placental Delivery Description: Spontaneous
[2023-06-16] MEDS: OXYTOCIN/RINGERS LACTATE 30 UNITS/500 ML BAG 40 UNITS IV (10:40)
[2023-06-16] MEDS: ACETAMINOPHEN 500MG TAB 1000 MG PO ×2 (16:41→22:28)
[2023-06-16] MEDS: PRENATAL MULTIVITAMIN W/IRON 1 EACH PO (16:41)
[2023-06-16] MEDS: BENZOCAINE-MENTHOL SPRAY 56GM CAN TP (17:14)
[2023-06-16 19:52] VITALS: BP 107/68; PULSE 57; RESP 17; TEMP 36.8; O2SAT 99
[2023-06-16] MEDS: IBUPROFEN 400 MG TABLET 800 MG PO (20:00)
[2023-06-16] MEDS: OXYCODONE 5MG IMMEDIATE RELEASE TABLET 10 MG PO (22:32)
[2023-06-17 04:23] VITALS: BP 110/56; PULSE 53; RESP 17; TEMP 36.6; O2SAT 99
[2023-06-17] MEDS: IBUPROFEN 400 MG TABLET 800 MG PO ×3 (04:26→18:43)
[2023-06-17] MEDS: ACETAMINOPHEN 500MG TAB 1000 MG PO ×3 (04:27→22:09)
[2023-06-17 07:48] LABS: Hematocrit 33.9 % (37.0-47.0)
--- NOTE | 2023-06-17 09:22 | EXP.ACUTE.PN ---
Subjective *Date: 06/17/23 *Time: 09:22 Interval history: She is 1 day from a vaginal delivery. She is doing very well. Her lochia is normal. She is bottlefeeding but considering breast-feeding. Medical Exam Vital signs and Labs for Last 24 Hours: Vital Signs Temp Pulse Resp BP Pulse Ox O2 Del Method 06/17/23 04:23 97.9 F 53 L 17 110/56 L 99 Room Air 06/16/23 19:52 98.3 F 57 L 17 107/68 L 99 Room Air Laboratory Results - last 24 hr 06/16/23 07:16: Blood Type O Positive, Antibody Screen Negative 06/17/23 07:25: Hgb 11.0 L, Hct 33.9 L I & O for Labs for Last 24 Hours: Intake & Output 06/14/23 06/15/23 06/16/23 06/17/23 11:59 11:59 11:59 11:59 Weight 184 lb Head: Present atraumatic ENT: Present normal exam Neck: Present normal inspection Respiratory: Present normal respiratory effort; Absent accessory muscle use Assessment and Plan *Assessment and plan (1) Mother positive for group B Streptococcus colonization: Status: Acute Category: Medical Code(s): P00.82 - affected by (positive) maternal group B streptococcus (GBS) colonization (2) Normal delivery at term: Status: Acute Category: Medical Code(s): O80 - Encounter for full-term uncomplicated delivery Plan She is well this morning. We will plan to send her home tomorrow. She would like a bilateral salpingectomy.
--- NOTE | 2023-06-17 10:41 | SW/DCPLANNER ---
Addendum entered by Belkis Garner 06/24/23 12:35: Infant cord screen is positive for THC. I have reported this to [facility] ID#[id number]. Addendum entered by Belkis Garner 06/18/23 07:55: Per [facility] this case does NOT meet criteria for investigation. Addendum entered by Belkis Garner 06/17/23 14:52: CORRECTION: this report is still pending/criteria has NOT been accepted at this time. Addendum entered by Belkis Garner 06/17/23 14:51: Per [facility] this report does meet criteria for investigation. Addendum entered by Belkis Garner 06/17/23 10:53: ID #[id number]. Original Note: I received a referral for this patient regarding: THC use during . Patient tested positive for THC on the following dates: 11/19/2022, 04/28/2023 and admission 06/16/2023. 's urine drug screen was negative (not first urine). Patient admits to THC during due to pain in legs. Patient delivered female (Hazel Ragland) 06/17/2023. 's father (Shaheed Ragland 06/05/80) was present at the time of my visit. Patient, Hazel Hummel and other child (Marcela Ragland) will reside at [address] [place] [address] in [place] [address]. Patient's contact number is [phone]. Patient stated that she will be established w/ [facility]. PED MD will be Dr Garner and patient stated that she will have transportation to all follow up appointments. Patient stated that she has the following items at home: crib, carseat, clothing, diapers and will be bottle feeding. Per nursing staff infant is currently scorin, 7 ,4 due to undisturbed tremors, loose stools and increased respirations. I will report this case to [facility] today. Patient and infant are planned to discharge home tomorrow 06/18/23 pending no setbacks.
[2023-06-17] MEDS: PRENATAL MULTIVITAMIN W/IRON 1 EACH PO (18:43)
[2023-06-17 20:25] VITALS: BP 117/57; PULSE 58; RESP 17; TEMP 36.9; O2SAT 97
[2023-06-18] MEDS: IBUPROFEN 400 MG TABLET 800 MG PO (03:20)
[2023-06-18] MEDS: ACETAMINOPHEN 500MG TAB 1000 MG PO (03:21)
--- NOTE | 2023-06-18 11:11 | P.DS_ITS ---
General Admission date:: 06/16/23 Discharge date: 06/18/23 HPI HPI HPI: She is a 32-year-old 5 para 3 who is 39 weeks gestational age. She has had a previous 10 pound 13 ounce baby and as result of that she requested delivery at term. O+ blood, Rubella immune GBS positive Hospital Course Hospital Course Hospital Course: She was started on IV oxytocin and had her membranes ruptured. Under labor epidural she progressed to full dilation and delivered spontaneously a liveborn female child at 10:23 AM on the morning of June 16, 2023. Baby was a liveborn female child weighing 8 pounds 4 ounces. Apgars were 9 at 1 minute and 9 at 5 minutes. She has done well and has remained afebrile without her hospitalization. She is eating and drinking and ambulating. She is bottlefeeding. Her lochia is normal. There were no perineal or vaginal lacerations. She was discharged home to follow-up in approximately 2 weeks time. She would like to have a bilateral salpingectomy and we will schedule this for 6 weeks from now. She was given the usual instructions with respect to limiting her activity, driving and sexual activity. Her condition on discharge is stable and improved. Exam Data for Last 24 hours Vital signs and Labs for Last 24 Hours: Temp Pulse Resp BP Pulse Ox O2 Del Method 98.5 F 58 L 17 117/57 L 97 Room Air 06/17/23 20:25 06/17/23 20:25 06/17/23 20:25 06/17/23 20:25 06/17/23 20:25 06/17/23 20:25 I & O for Last 24 hours: Intake & Output 06/15/23 06/16/23 06/17/23 06/18/23 11:59 11:59 11:59 11:59 Weight 184 lb Microbiology Reports for the Last 24 Hours: Microbiology 06/16/23 07:06 Urine,Clean Catch Urine Culture - Final Constitutional Constitutional: no acute distress *Routine HEENT Exam Head: Present normocephalic *Routine Respiratory Exam Respiratory: Present normal respiratory effort; Absent accessory muscle use DS: Diagnosis Discharge Diagnosis (1) Mother positive for group B Streptococcus colonization: Status: Acute Code(s): P00.82 - affected by (positive) maternal group B streptococcus (GBS) colonization (2) Normal delivery at term: Status: Acute Code(s): O80 - Encounter for full-term uncomplicated delivery Meds Home Medications and Allergies Home Medications Medication Instructions Recorded Confirmed Type ferrous sulfate 325 mg (65 mg 325 mg PO DAILY Supplement 06/16/23 06/16/23 Histo ry iron) tablet,delayed release vit no.95-ferrous 1 tab PO DAILY Supplement 06/16/23 06/16/23 History fumarate 28 mg-folic acid 800 mcg tablet () New Prescriptions to Start Prescriptions: Allergies Allergy/AdvReac Type Severity Reaction Status Date / Time No Known Allergies Allergy Verified 06/09/23 09:49 Discharge Plan Disposition Patient Disposition: Home, Self-Care Follow up Plan Follow up with: Shanna Melvin DO [Staff Physician] - 06/30/23 1:45 pm Prescriptions/Medication Reconciliation: Continued PNV cmb#95-ferrous fumarate-FA [] 28 mg iron- 800 mcg Tablet 1 tab PO DAILY ferrous sulfate 325 mg (65 mg iron) tablet,delayed release (DR/EC) 325 mg PO DAILY Problem Reconciliation Problems Reviewed?: Yes Patient Discharge Instructions ACTIVITY: No heavy lifting DIET: continue same diet Additional Instructions: *Nothing in the vagina for 6 weeks* *No heavy lifting* *No strenuous activity* Patient Instructions: Depression, Hemorrhage, DI for Labor and Delivery, Vaginal , DI for Pre-eclampsia, [facility] Post Discharge Instructions Providers Primary Care Provider: Thalia Hodges Admit Provider: Johan Holm Attending Provider: Johan Holm
== END 2023-06-18 14:50 | disposition home or self-care (01) | DRG 807 ==
PROVIDERS: Admitting Provider Nurse Practitioner Obstetrics & Gynecology; PCP Nurse Practitioner Family; Visit Provider Nurse Practitioner Obstetrics & Gynecology
DX: O99.824 Streptococcus B carrier state complicating childbirth (principal); Z37.0 Single live birth; Z3A.39 39 weeks gestation of pregnancy
CPT/HCPCS: 59409; 36415; 59025; 80307; 81001; 85014; 85018; 85025; 86850; 87086; 94761; G0283; J0290

== ENCOUNTER 2023-08-06 16:01 | Outpatient (CLI) | payer OTHER, SELFPAY ==
[2023-08-06 16:35] LABS: Basophils % 0.7 % (0.1-2.0); Eosinophils # 0.1 K/mm3 (0.0-0.4); Eosinophils % 1.7 % (0.1-12.0); Hematocrit 44.3 % (37.0-47.0); Hemoglobin 14.3 g/dL (12.2-16.2); Lymphocytes # 1.8 K/mm3 (0.7-4.5); Lymphocytes % 27.2 % (10-50); Mean Corpuscular HGB Conc 32.4 g/dL (31.8-35.4); Mean Corpuscular Volume 86.4 fl (81-99); Monocytes # 0.3 K/mm3 (0.1-1.0); Monocytes % 3.7 % (1.7-9.3); Neutrophils # 4.5 K/mm3 (1.8-7.8); Neutrophils % 66.7 % (37.0-80.0); Platelet Count 340 K/mm3 (142-424); Red Blood Count 5.12 M/mm3 (4.20-5.40); Red Cell Distribution Width 18.1 % (11.5-17.5); White Blood Count 6.7 K/mm3 (4.8-10.8)
[2023-08-06 16:56] LABS: Alanine Aminotransferase 23 U/L (12-78); Albumin Level 4.1 g/dl (3.5-5.0); Albumin/Globulin Ratio 1.5 (1.1-1.8); Alkaline Phosphatase 102 U/L (38-126); Anion Gap 7.9 mEq/L (5-15); Aspartate Amino Transferase 31 U/L (14-36); Bilirubin,Total 0.3 mg/dl (0.2-1.3); Blood Urea Nitrogen 11 mg/dl (7-17); Calcium 9.1 mg/dl (8.4-10.2); Carbon Dioxide 30 mmol/L (22.0-30.0); Chloride 107 mmol/L (98-107); Estimated Glomerular Filt Rate 63 ml/min (>60); GFR (African American) 76 ML/MIN (>60); Globulin 2.7 g/dL (1.3-3.2); Glucose 98 mg/dl (74-100); Potassium 3.9 mmoL/L (3.5-5.1); Sodium 141 mmol/L (136-145); Total Protein,Serum 6.8 g/dl (6.3-8.2)
[2023-08-06 17:29] LABS: HCG,Quantitative < 2 mIU/ml (0-5.42)
== END 2023-08-06 23:59 | disposition home or self-care (01) ==
LOC: LAB 16:02
PROVIDERS: PCP Nurse Practitioner Family; Visit Provider Nurse Practitioner Obstetrics & Gynecology
DX: Z30.09 Encounter for other general counseling and advice on contraception (principal)
CPT/HCPCS: 36415; 80053; 84702; 85025